=== PATIENT | female | born 1980 | race Caucasian/White ===

== ENCOUNTER → 2020-11-22 08:18 | Outpatient (CLI) | payer OTHER, SELFPAY ==
[2020-11-22] MEDS: COVID-19 VACC #1, MRNA(MOD) 100 MCG/0.5 ML VIAL IM (08:30)
== END ==
PROVIDERS: PCP Internal Medicine; Visit Provider Internal Medicine
DX: Z23 Encounter for immunization (principal)
CPT/HCPCS: 0011A; 91301

== ENCOUNTER → 2020-12-20 08:09 | Outpatient (CLI) | payer OTHER, SELFPAY ==
[2020-12-20] MEDS: COVID-19 VACC #2, MRNA(MOD) 100 MCG/0.5 ML VIAL IM (08:22)
== END ==
PROVIDERS: PCP Internal Medicine; Visit Provider Internal Medicine
DX: Z23 Encounter for immunization (principal)
CPT/HCPCS: 0012A; 91301

== ENCOUNTER → 2022-05-22 17:43 | Outpatient (CLI) | payer OTHER, SELFPAY ==
--- NOTE | 2022-05-22 17:47 | DI.MG.S_ITS ---
BILATERAL DIGITAL SCREENING MAMMOGRAM 3D/2D WITH CAD: 05/22/2022 CLINICAL: Routine screening. Baseline exam. No prior exams were available for comparison. Both breasts are heterogeneously dense, which may obscure small masses (category c / 51-75% glandular tissue). Current study was also evaluated with a Computer Aided Detection (CAD) system. No significant masses, calcifications, or other findings are seen in either breast. IMPRESSION: NEGATIVE There is no mammographic evidence of malignancy. A 1 year screening mammogram is recommended. Based on the Tyrer Cuzick model (a risk assessment model) the patient's lifetime risk is 13.8% and her 10 year risk is 2.1%. According to the ACR, ACS, and NCCN guidelines, an annual breast MRI exam along with mammogram is recommended if the patient's lifetime risk is 20% or greater. This exam was interpreted at Station ID: [id number]. NOTE: For mammograms, a report in lay terms will be sent to the patient. Approximately 15% of breast malignancies will not be visualized mammographically. In the management of a palpable breast mass, a negative mammogram must not discourage biopsy of a clinically suspicious lesion. Electronically Signed By: Chino lyman/macie:05/23/2022 07:28:45 letter sent: Normal Exam ACR BI-RADS Category 1: Negative 3341F
== END ==
PROVIDERS: Referring Provider Nurse Practitioner Family; Visit Provider Nurse Practitioner Family
DX: Z12.31 Encounter for screening mammogram for malignant neoplasm of breast (principal)
CPT/HCPCS: 77063; 77067

== ENCOUNTER → 2022-05-27 12:10 | Outpatient (CLI) | payer OTHER, SELFPAY ==
--- NOTE | 2022-05-27 | DI.US.S_ITS ---
PROCEDURE: US PELVIC COMPLETE INDICATIONS: Pelvic and perineal pain TECHNIQUE: Real-time scanning was performed of the pelvic organs, with image documentation. Additional endovaginal scanning was necessary due to incomplete visualization of the adnexal and endometrial structures by transabdominal scanning. COMPARISON: None. FINDINGS: Uterus: Uterus is anteverted and normal in size at 8.3 x 4.8 x 5.0 cm. The myometrium is homogeneous. The endometrium measures 7.6 mm combined thickness. Ovaries: Right ovary is grossly normal measuring 2.9 x 4.4 x 2.7 cm. A normal left ovary is not clearly seen. There is a large complex pelvic mass within the anterior midline of the pelvis measuring 14.6 x 9.0 x 13.5 cm. There is wall irregularity and mural nodularity with fine low level internal echoes noted throughout the fluid. No internal vascularity. Other: No pathologic free abdominal or pelvic fluid. IMPRESSION: 1. Large midline anterior pelvic mass which measures up to 14.6 cm suspicious for underlying neoplastic process such as cystadenoma/cystadenocarcinoma. Recommend gynecologic consultation. If indicated, pre and post contrast gynecologic protocol MRI could be performed for further characterization. We strive to produce accurate, complete, and clear reports of imaging services. To assist us in improving patient care, this report was composed using standard report templates and voice recognition software. Therefore, it may contain abnormal punctuation, insertions and/or omissions. Occasional wrong-word or sound-alike substitutions may occur. Though we review the report and make efforts to correct it, we do recommend that the report be read carefully in proper context to recognize any text inaccuracies. Dictated by: Landon SPANN Interpreted: Yuki Hernandez MD on 05/27/2022 at 13:04 Transcribed by: HOPE on 05/27/2022 at 13:07 Approved by: Yuki Hernandez M.D. on 05/27/2022 at 15:40
== END ==
PROVIDERS: PCP Nurse Practitioner Family; Referring Provider Nurse Practitioner Family; Visit Provider Nurse Practitioner Family
DX: R10.2 Pelvic and perineal pain (principal); R19.09 Other intra-abdominal and pelvic swelling, mass and lump
CPT/HCPCS: 76830; 76856

== ENCOUNTER → 2022-05-30 14:08 | Outpatient (CLI) | payer OTHER, SELFPAY ==
[2022-05-30 16:33] LABS: Cancer Antigen 125 52.8 U/mL (0-35)
[2022-06-03 12:17] LABS: Human Epididymis Prot 4 54.9 pmol/L (0.0-63.6)
== END ==
PROVIDERS: PCP Nurse Practitioner Family; Referring Provider Obstetrics & Gynecology; Visit Provider Obstetrics & Gynecology
DX: R19.09 Other intra-abdominal and pelvic swelling, mass and lump (principal)
CPT/HCPCS: 36415; 86304; 86305

== ENCOUNTER → 2022-07-10 15:05 | Outpatient (CLI) | payer OTHER, SELFPAY ==
[2022-07-10 16:27] LABS: Add Manual Diff / Slide Review NO; Basophils Absolute Auto 0 /uL (0-100); Basophils Percent Auto 0.7 % (0-2); Eosinophils Absolute Auto 0 /uL (0-450); Eosinophils Percent Auto 0.5 % (2-4); Hematocrit 39.8 % (36-46); Hemoglobin 13.5 g/dL (12.0-16.0); Lymphocytes Absolute Auto 1400 /uL (1100-4500); Lymphocytes Percent Auto 22.4 % (25-40); Mean Corpuscular HGB Conc 33.8 % (30-36); Mean Corpuscular Hemoglobin 30.7 PG (26-34); Mean Corpuscular Volume 90.7 fL (80-100); Monocytes Absolute Auto 700 /uL (0-900); Monocytes Percent Auto 10.6 % (3-14); Neutrophils Absolute Auto 4200 /uL (1500-7000); Neutrophils Percent Auto 65.8 % (50-75); Platelet Count 244 X10^3/uL (150-400); Red Blood Cell Count 4.39 X10^6/uL (4.0-5.2); Red Cell Distribution Width 13.5 % (11.6-14.8); White Blood Cell Count 6.3 X10^3/uL (4.5-11.0)
[2022-07-10 17:17] LABS: Alanine Aminotransferase 17 IU/L (<35); Albumin 4.5 g/dL (3.5-5.0); Albumin Globulin Ratio 1.6 (1.0-2.8); Alkaline Phosphatase 59 U/L (38-126); Aspartate Aminotransferase 19 IU/L (14-36); BUN Creatinine Ratio 15.3 (6-22); Bilirubin Total 0.3 mg/dL (0.2-1.3); Blood Urea Nitrogen 9 mg/dL (7-17); Carbon Dioxide 24 mmol/L (22-32); Chloride 104 mmol/L (98-107); Estimated Glomerular Filt Rate > 60 mL/min (>60); Globulin 2.8 g/dL (1.7-4.1); Glucose 121 mg/dL (70-100); HEMOLYSIS < 15 (0-50); Potassium 3.6 mmol/L (3.4-5.1); Sodium 138 mmol/L (137-145); Total Protein 7.3 g/dL (6.3-8.2)
== END ==
PROVIDERS: PCP Nurse Practitioner Family; Referring Provider Obstetrics & Gynecology Gynecologic Oncology; Visit Provider Obstetrics & Gynecology Gynecologic Oncology
DX: Z01.818 Encounter for other preprocedural examination (principal)
CPT/HCPCS: 36415; 80053; 85025

== ENCOUNTER → 2024-08-18 10:08 | Outpatient (CLI) | payer OTHER, SELFPAY ==
[2024-08-18 10:46] LABS: Add Manual Diff / Slide Review NO; Basophils Absolute Auto 0 /uL (0-100); Basophils Percent Auto 0.8 % (0-2); Eosinophils Absolute Auto 100 /uL (0-450); Eosinophils Percent Auto 1.3 % (2-4); Hematocrit 44.2 % (36-46); Lymphocytes Absolute Auto 1200 /uL (1100-4500); Lymphocytes Percent Auto 23.1 % (25-40); Mean Corpuscular HGB Conc 33.8 % (30-36); Mean Corpuscular Hemoglobin 32.5 PG (26-34); Mean Corpuscular Volume 96.2 fL (80-100); Monocytes Absolute Auto 500 /uL (0-900); Monocytes Percent Auto 10.3 % (3-14); Neutrophils Absolute Auto 3300 /uL (1500-7000); Neutrophils Percent Auto 64.5 % (50-75); Platelet Count 239 X10^3/uL (150-400); Red Cell Distribution Width 13.2 % (11.6-14.8); White Blood Cell Count 5.1 X10^3/uL (4.5-11.0)
[2024-08-18 11:13] LABS: Alanine Aminotransferase 19 IU/L (<35); Albumin 4.6 g/dL (3.5-5.0); Albumin Globulin Ratio 1.6 (1.0-2.8); Alkaline Phosphatase 63 U/L (38-126); Aspartate Aminotransferase 24 IU/L (14-36); BUN Creatinine Ratio 14.1 (6-22); Bilirubin Total 0.7 mg/dL (0.2-1.3); Blood Urea Nitrogen 10 mg/dL (7-17); Calcium 9.2 mg/dL (8.4-10.2); Carbon Dioxide 27 mmol/L (22-32); Chloride 107 mmol/L (98-107); Cholesterol 211 mg/dL (140-199); Estimated Glomerular Filt Rate > 60 mL/min (>60); Globulin 2.8 g/dL (1.7-4.1); Glucose 90 mg/dL (70-100); HDL Cholesterol 55 mg/dL (40-60); HEMOLYSIS < 15 (0-50); LDL Cholesterol Calculated 132 mg/dL (<100); Potassium 3.9 mmol/L (3.4-5.1); Sodium 139 mmol/L (137-145); Total Protein 7.4 g/dL (6.3-8.2); Triglycerides 118 mg/dL (35-150)
[2024-08-18 11:28] LABS: Prolactin 14.9 ng/mL (3.0-18.6)
[2024-08-18 11:29] LABS: Follicle Stimulating Hormone 3.53 mIU/mL; Luteinizing Hormone 2.78 mIU/mL; Progesterone, Total 1.94 ng/mL
[2024-08-18 11:42] LABS: TSH w/ Reflex to FT4 1.44 uIU/mL (0.47-4.68)
== END ==
PROVIDERS: PCP Family Medicine; Referring Provider Family Medicine; Visit Provider Family Medicine
DX: M79.7 Fibromyalgia (principal); R61 Generalized hyperhidrosis; H53.8 Other visual disturbances; Z13.6 Encounter for screening for cardiovascular disorders
CPT/HCPCS: 36415; 80053; 80061; 82672; 83001; 83002; 84144; 84146; 84443; 85025; 86900; 86901

== ENCOUNTER → 2024-09-01 08:29 | Outpatient (CLI) | payer OTHER, SELFPAY ==
--- NOTE | 2024-09-01 08:30 | DI.MG.S_ITS ---
BILATERAL DIGITAL SCREENING MAMMOGRAM 3D/2D WITH CAD: 09/01/2024 CLINICAL: Routine screening. Family history of breast cancer. Comparison is made to exam dated: 05/22/2022 mammogram - [facility]. The breasts are extremely dense, which lowers the sensitivity of mammography (category d />75% glandular tissue). Current study was also evaluated with a Computer Aided Detection (CAD) system. No significant masses, calcifications, or other findings are seen in either breast. There has been no significant interval change. IMPRESSION: NEGATIVE There is no mammographic evidence of malignancy. A 1 year screening mammogram is recommended. Based on Tyrer-Cuzick model (a risk assessment model), the patient's lifetime risk is 20.2% and her 10 year risk is 3.6%. If a patient has an elevated risk, a more comprehensive evaluation should be considered and/or a referral to a genetic counselor. The [place] [employer], [place] [employer], and NCCN Guidelines advise the consideration of Breast MRI as an adjunct to screening mammography in patients whose Lifetime risk to develop breast cancer is 20% or higher. This exam was interpreted at Station ID: [id number]. NOTE: For mammograms, a report in lay terms will be sent to the patient. Approximately 15% of breast malignancies will not be visualized mammographically. In the management of a palpable breast mass, a negative mammogram must not discourage biopsy of a clinically suspicious lesion. Electronically Signed By: Alexander melchor/macie:09/01/2024 15:29:33 letter sent: Normal Exam ACR BI-RADS Category 1: Negative
== END ==
PROVIDERS: PCP Family Medicine; Referring Provider Family Medicine; Visit Provider Family Medicine
DX: Z12.31 Encounter for screening mammogram for malignant neoplasm of breast (principal); Z80.3 Family history of malignant neoplasm of breast; R92.343 Mammographic extreme density, bilateral breasts
CPT/HCPCS: 77063; 77067

== ENCOUNTER → 2024-09-23 08:12 | Outpatient (CLI) | payer OTHER, SELFPAY ==
--- NOTE | 2024-09-23 08:13 | DI.MRI.S_ITS ---
BREAST MRI OF BOTH BREASTS: 09/23/2024 CLINICAL: High risk screening. Comparison is made to exams dated: 09/01/2024 mammogram and 05/22/2022 mammogram - [facility]. PROCEDURE: MR BREAST BI WO/W CON INDICATIONS: screeening TECHNIQUE: The patient was placed prone in a dedicated breast imaging coil. Precontrast axial STIR and 3D FLASH without fat saturation sequences were obtained. Both before and after bolus injection of contrast, sequential 1-minute axial 3D FLASH with fat saturation sequences for 3 time points, with subtraction images and maximum intensity projections (MIP's) generated. Delayed sagittal FLASH images with fat saturation were also obtained. Computer-aided detection, including computer algorithm analysis of MRI image data for lesion detection and characterization, pharmacokinetic analysis, with further physician review for interpretation, was performed. FINDINGS: Image quality: Diagnostic. There is marked background parenchymal enhancement. The breasts are extremely dense. Right breast: Marked background parenchymal enhancement limits evaluation. There is no suspicious focal mass, or non mass enhancement. Left breast: Adjacent oval circumscribed masses with possible dark internal septations are seen in the central region middle depth, measuring 0.7 x 1.7 centimeters (6/63), and 1.1 x 1.7 centimeters (6/68). Dynamic contrast enhancement characteristics demonstrates no washout. No other suspicious findings. Miscellaneous: The upper abdomen and anterior mediastinum are unremarkable, partially visualized. No pathologic lymph nodes by size criteria or morphologic characteristics within the field of view. On T2 weighted images, numerous benign cysts are seen in both breasts IMPRESSION: INCOMPLETE: NEED ADDITIONAL IMAGING EVALUATION No suspicious findings in the right breast. Oval circumscribed masses with possible dark internal septations are seen in the central region of the left breast without suspicious washout on dynamic enhancement. These are indeterminate. Differential includes fibroadenomas. Second-look ultrasound is suggested. (Reference images 6/63, 68) Background marked fibroglandular enhancement, which can decreased the sensitivity of MRI. BIRADS 0 COMMENT: The imaging literature indicates that a negative contrast breast MRI examination has a high sensitivity and a moderate specificity for detecting and excluding invasive carcinomas to a detection threshold of 3-5 mm; nonetheless, appropriate clinical and mammographic follow-up are recommended. MRI is not sensitive for detecting DCIS (ductal carcinoma in situ) and may not detect large invasive neoplasms that show only minimal enhancement such as mucinous carcinoma. If there are suspicious calcifications or clinically worrisome palpable masses, then biopsy should still be considered. Invasive neoplasms can be hidden by co-existent and benign enhancement caused by mastitis, hormone therapy effects, radiation therapy, , and recent biopsy or surgery. False positive examinations can occur in a number of circumstances, including breasts that have recently been subject to invasive procedures and those that contain atypical ductal hyperplasia, hormonally stimulated glandular tissue, fat necrosis, or radial scars. This exam was interpreted at Station ID: [id number]. Electronically Signed By: Jeovanny Whiteside M.D. lc/:09/23/2024 13:42:08 Entry: ka - 09/26/2024 08:46:47 ACR BI-RADS Category 0: Incomplete: Need Additional Imaging Evaluation
== END ==
PROVIDERS: PCP Family Medicine; Referring Provider Family Medicine; Visit Provider Family Medicine
DX: N63.25 Unspecified lump in the left breast, overlapping quadrants (principal); R92.30 Dense breasts, unspecified; Z12.39 Encounter for other screening for malignant neoplasm of breast; Z80.3 Family history of malignant neoplasm of breast
CPT/HCPCS: 77049; A9579

== ENCOUNTER → 2024-10-21 | Outpatient (CLI) | payer OTHER, SELFPAY ==
--- NOTE | 2024-10-21 07:30 | DI.ECHO.S_ITS ---
[place] [facility]+ [facility] : : [address] : : [place] : : [id number] : : Phone: [phone] Echocardiogram Report + + :Name: JEF MISTRY Study Date: 10/21/2024 Height: 66 in : :Hospital ReadingLocation: Weight: 160 lb : : Gender: Female BSA: 1.8 m2 : :: 1980 Age: 44 yrs BP: 103/69 mmHg: :Reason For Study: Family Hx of Bicuspid Aortic Valve : :Ordering Physician: CARINE, : :MELODY Osman Performed By: Bertha Pike : :Referring: MELODY HAWK : + + Interpretation Summary The left ventricle is normal in size and wall thickness. Left ventricular systolic function is low normal. The ejection fraction is estimated to be 50-55%. There are no focal wall motion abnormalities. Diastolic parameters suggest probable normal left ventricular diastolic function and normal filling pressures. The right ventricle is normal in size and function. The right ventricular systolic pressure is estimated to be at least 13 mmHg based on an estimated right atrial pressure of 3 mm Hg. Both atria are normal in size. There is no significant valvular heart disease. The aortic valve is trileaflet. Procedure: A two-dimensional transthoracic echocardiogram with color flow and Doppler was performed. The study quality was technically adequate. There is no prior echocardiogram noted for this patient. The patient was in sinus rhythm with heart rates between 64-75 bpm during the exam. Left Ventricle: The left ventricle is normal in size and wall thickness. Left ventricular systolic function is low normal. The ejection fraction is estimated to be 50-55%. There are no focal wall motion abnormalities. Diastolic parameters suggest probable normal left ventricular diastolic function and normal filling pressures. Right Ventricle: The right ventricle is normal in size and function. Atria: Both atria are normal in size. There is no Doppler evidence for an interatrial shunt. Mitral Valve: The mitral valve leaflets appear normal. There is no evidence of stenosis, fluttering, or prolapse. There is trace mitral regurgitation. Aortic Valve: The aortic valve is trileaflet. The aortic valve opens well. There is no aortic valve stenosis. No aortic regurgitation is present. Tricuspid Valve: The tricuspid valve leaflets are thin and pliable. There is a trace or physiologic amount of tricuspid regurgitation. The right ventricular systolic pressure is estimated to be at least 13 mmHg based on an estimated right atrial pressure of 3 mm Hg. Pulmonic Valve: The pulmonic valve is not well seen, but is grossly normal. There is a trace or physiologic amount of pulmonic regurgitation. There is no significant valvular heart disease. Great Vessels: The aortic root is normal size. The ascending aorta is normal in size. The aortic arch is normal in size. The pulmonary artery is not well visualized, but is probably normal size. The IVC is of normal diameter and collapses greater than 50% with a sniff. This suggests a low right atrial pressure of 3 mm Hg. Pericardium/ Pleura There is no pericardial effusion. There is no pleural effusion. MMode/2D Measurements & Calculations LVIDd: 4.5 cm LVOT diam: 2.3 cm LVIDs: 3.2 cm Ao root diam: 3.7 cm FS: 28.7 % asc Aorta Diam: 3.1 cm EPSS: 0.37 cm Ao Arch Diam (Prox Trans): 2.3 cm IVSd: 0.75 cm LVPWd: 0.82 cm LV dyer. diameter/BSA (cm/m^2): 2.4 LV sys. diameter/BSA (cm/m^2): 1.7 LA A2 area: 20.5 cm2 RA long axis: 4.8 cm LA A4 area: 14.7 cm2 RA area: 15.4 cm2 LA length (vol): 5.0 cm RA vol: 42.0 ml LA vol: 51.6 ml RA : 23.1 ml/m2 LA vol index: 28.4 ml/m2 IVC diam: 1.4 cm TAPSE: 2.4 cm Doppler Measurements & Calculations Ao V2 max: 86.3 cm/sec LVOT Max Stephen: 86.0 cm/sec Ao V2 mean: 60.5 cm/sec LV V1 max P.0 mmHg Ao max P.0 mmHg LV V1 VTI: 17.5 cm Ao mean P.6 mmHg RICHARD(I,D): 4.1 cm2 Ao V2 VTI: 16.9 cm RICHARD(V,D): 4.0 cm2 sev ratio: 1.0 RICHARD indexed to BSA (cm^2/m^2): 2.3 MV E max stephen: 69.6 cm/sec TR max stephen: 155.2 cm/sec MV A max stephen: 46.4 cm/sec TR max P.6 mmHg MV E/A: 1.5 PA V2 max: 59.8 cm/sec Med Peak E' Stephen: 8.7 cm/sec PA V2 mean: 40.2 cm/sec E/E' med: 8.0 PA mean P.72 mmHg Lat Peak E' Stephen: 11.0 cm/sec E/E' lat: 6.4 E/e' average: 7.2 MV dec time: 0.23 sec MVA(VTI): 3.0 cm2 MV V2 mean: 44.6 cm/sec SV(LVOT): 70.2 ml MV mean P.99 mmHg MV V2 VTI: 23.3 cm Reading Physician:11:24 AM
== END ==
PROVIDERS: PCP Family Medicine; Referring Provider Family Medicine; Visit Provider Family Medicine
DX: Z82.79 Family history of other congenital malformations, deformations and chromosomal abnormalities (principal); Z13.6 Encounter for screening for cardiovascular disorders
CPT/HCPCS: 93306

== ENCOUNTER → 2024-11-24 14:32 | Outpatient (CLI) | payer OTHER, SELFPAY ==
--- NOTE | 2024-11-24 14:33 | DI.US.S_ITS ---
US breast LT limited: 11/24/2024. BI-RADS: 3 CLINICAL: 44-year old female for left diagnostic breast ultrasound that is a follow-up to breast MRI, bilateral on 09/23/2024. Tyrer-Cuzick lifetime risk of 9.1%. No personal or first-degree family history of breast cancer. PRIOR EXAMS 09/23/2024, 09/01/2024, 05/22/2022; MRI 09-23-24. ULTRASOUND TECHNIQUE TARGETED Left Breast Ultrasound: Real-time ultrasound exam was performed focused to area of clinical and/or imaging concern. ULTRASOUND FINDINGS Left: Upper Inner at 11:00, 3.0 cm from nipple, measuring 1.5 x 0.8 x 0.9 cm: Correlating with MRI findings there is an oval, circumscribed, hypoechoic mass. Doppler shows no vascularity. Left: Upper at 12:00, 3.0 cm from nipple, measuring 1.8 x 1.2 x 1.8 cm: Correlating with MRI findings there is an oval, circumscribed, hypoechoic mass. Doppler shows no vascularity. Left: Lower at 6:00, Retroareolar, measuring 1.4 x 0.8 x 1.5 cm: Correlating with MRI findings there is an oval, circumscribed, hypoechoic mass. Doppler shows no vascularity. IMPRESSION: Left (Mass): Upper Inner at 11:00, 3.0 cm from nipple, measuring 1.5 x 0.8 x 0.9 cm * Probably Benign. Left (Mass): Upper at 12:00, 3.0 cm from nipple, measuring 1.8 x 1.2 x 1.8 cm * Probably Benign. Left (Mass): Lower at 6:00, Retroareolar, measuring 1.4 x 0.8 x 1.5 cm * Probably Benign. RECOMMENDATIONS Left * Six month followup with diagnostic ultrasound. COMMENTS: Findings and recommendations were conveyed to the patient during today's evaluation. OVERALL ASSESSMENT CATEGORY BI-RADS-3: Probably Benign. ELECTRONICALLY SIGNED: Glendy Barger M.D. on 11/24/2024 at 03:49:53 PM PT Interpreting Station ID: [id number]
== END ==
LOC: US 14:33
PROVIDERS: PCP Family Medicine; Referring Provider Family Medicine; Visit Provider Family Medicine
DX: R92.8 Other abnormal and inconclusive findings on diagnostic imaging of breast (principal); N63.25 Unspecified lump in the left breast, overlapping quadrants; N63.22 Unspecified lump in the left breast, upper inner quadrant
CPT/HCPCS: 76642

== ENCOUNTER → 2025-07-04 09:13 | Outpatient (CLI) | payer OTHER, SELFPAY ==
--- NOTE | 2025-07-04 09:14 | DI.US.S_ITS ---
US breast LT limited: 07/04/2025. BI-RADS: 4A CLINICAL: 45-year old female for left diagnostic breast ultrasound that is a follow-up to diagnostic breast ultrasound on 11/24/2024. Tyrer-Cuzick lifetime risk of 9.0%. No personal or first-degree family history of breast cancer. PRIOR EXAMS 11/24/2024, 09/23/2024, 09/01/2024, 05/22/2022. ULTRASOUND TECHNIQUE: Real-time dunaway scale and color doppler imaging of the area of clinical interest was performed with image documentation. Left targeted breast ultrasound of the area of clinical interest and the axilla was performed with image documentation. ULTRASOUND FINDINGS Left: Upper at 12:00, 3.0 cm from nipple, measuring 2.6 x 1.4 x 1.9 cm - previously measuring (11/24/2024) 1.8 x 1.2 x 1.8 cm: Correlating with prior imaging concern there is an oval, circumscribed, hypoechoic mass that is parallel. The mass has increased in size. Doppler shows no vascularity. Left: Upper Inner at 11:00, 3.0 cm from nipple, measuring 1.8 x 0.7 x 1.3 cm - previously measuring (11/24/2024) 1.5 x 0.8 x 0.9 cm: Correlating with prior imaging concern there is an oval, circumscribed, hypoechoic mass that is parallel. Doppler shows no vascularity. Left: Lower at 6:00, Retroareolar, measuring 1.7 x 0.8 x 1.5 cm - previously measuring (11/24/2024) 1.4 x 0.8 x 1.5 cm: Correlating with prior imaging concern there is an oval, circumscribed, hypoechoic mass that is parallel. Doppler shows no vascularity. Left: Axilla: No abnormal lymph nodes are seen in the axilla. IMPRESSION: Left (Mass): Upper at 12:00, 3.0 cm from nipple, measuring 2.6 x 1.4 x 1.9 cm - previously measuring (11/24/2024) 1.8 x 1.2 x 1.8 cm * Low Suspicion for Malignancy. Left (Mass): Upper Inner at 11:00, 3.0 cm from nipple, measuring 1.8 x 0.7 x 1.3 cm - previously measuring (11/24/2024) 1.5 x 0.8 x 0.9 cm * Probably Benign. Left (Mass): Lower at 6:00, Retroareolar, measuring 1.7 x 0.8 x 1.5 cm - previously measuring (11/24/2024) 1.4 x 0.8 x 1.5 cm * Probably Benign. RECOMMENDATIONS Left: Upper Inner at 11:00, 3.0 cm from nipple * Six month followup with diagnostic ultrasound (Consider further management pending the biopsy results). Left: Upper at 12:00, 3.0 cm from nipple * Ultrasound-guided biopsy for further evaluation. Left: Lower at 6:00, Retroareolar * Six month followup with diagnostic ultrasound (Consider further management pending the biopsy results). COMMENTS: Findings and recommendations regarding the biopsy were conveyed to the patient during today's evaluation by Dr. Rodriguez. OVERALL ASSESSMENT CATEGORY BI-RADS-4: Suspicious. ELECTRONICALLY SIGNED: Shelly Rodriguez M.D. on 07/04/2025 at 10:30:44 AM PT Interpreting Station ID: [id number]
== END ==
LOC: US 09:14
PROVIDERS: PCP Family Medicine; Referring Provider Family Medicine; Visit Provider Family Medicine
DX: R92.8 Other abnormal and inconclusive findings on diagnostic imaging of breast (principal); N63.22 Unspecified lump in the left breast, upper inner quadrant; N63.25 Unspecified lump in the left breast, overlapping quadrants
CPT/HCPCS: 76642